=== PATIENT | female | born 1985 | race Asian ===

== ENCOUNTER 2019-01-23 09:47 | Day surgery (SDC) | payer OTHER | END 2019-01-23 13:00 | disposition home or self-care (01) | LOC: OR 09:47 | PROC: 3E0R33Z Introduction of Anti-inflammatory into Spinal Canal, Percutaneous Approach (ICD-10-PCS; principal; 2019-01-23) | PROC: B01BYZZ Fluoroscopy of Spinal Cord using Other Contrast (ICD-10-PCS; 2019-01-23) | DX: M51.16 Intervertebral disc disorders with radiculopathy, lumbar region (principal) | CPT/HCPCS: J1020 ==

== ENCOUNTER 2019-05-29 08:27 | Day surgery (SDC) | payer OTHER | END 2019-05-29 11:20 | disposition home or self-care (01) | LOC: OR 08:27 | PROC: 3E0T3TZ Introduction of Destructive Agent into Peripheral Nerves and Plexi, Percutaneous Approach (ICD-10-PCS; principal; 2019-05-29) | PROC: BR16YZZ Fluoroscopy of Lumbar Facet Joint(s) using Other Contrast (ICD-10-PCS; 2019-05-29) | DX: M47.816 Spondylosis without myelopathy or radiculopathy, lumbar region (principal) | CPT/HCPCS: J2001 ==

== ENCOUNTER 2019-07-10 08:14 | Day surgery (SDC) | payer OTHER ==
[~2019-07-10] VITALS: Ht 154.9 cm; Wt 72.6 kg
== END 2019-07-10 09:48 | disposition home or self-care (01) ==
LOC: OR 08:14
PROC: 3E0T3TZ Introduction of Destructive Agent into Peripheral Nerves and Plexi, Percutaneous Approach (ICD-10-PCS; principal; 2019-07-10)
PROC: BR16YZZ Fluoroscopy of Lumbar Facet Joint(s) using Other Contrast (ICD-10-PCS; 2019-07-10)
DX: M47.816 Spondylosis without myelopathy or radiculopathy, lumbar region (principal)
CPT/HCPCS: J2001